=== PATIENT | male | born 1990 | race Two or more races ===

== ENCOUNTER 2018-06-01 13:43 | Emergency (ER) | payer OTHER ==
[~2018-06-01] VITALS: Ht 180.3 cm; Wt 72.6 kg
[2018-06-01 14:05] VITALS: BP 115/72
[2018-06-01] MEDS ORDERED: NKM (14:07)
[2018-06-01] MEDS ORDERED: Tetanus/Diptheria/Pertussis Vaccine 0.5ml Syr IM ONE (14:30)
--- NOTE | 2018-06-01 14:45 | Emergency Room Report ---
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 pt. reports he was cutting a piece of plastic off of a box with a knife and stabbed his hand. Pt. reports 10/ in severity dull ache at the site of injury that is non radiating. Pt. is right hand dominant. He is not sure when his last tetanus vaccination was. not taking blood thinning medications. denies paresthesias to extremities distal to the injury . Denies loss or weakness in gross motor movements. Allergies: Coded Allergies: No Known Allergies (Unverified , 06/01/18) Patient History Past Medical History: see triage record Past Surgical History: none Pertinent Family History: none Reviewed Nursing Documentation: PMH: Agreed; PSxH: Agreed Nursing Documentation-PMH Past Medical History: No Stated History Review of Systems All Other Systems: negative except mentioned in HPI Physical Exam Vital Signs Date Time Temp Pulse Resp B/P (MAP) Pulse Ox O2 Delivery O2 Flow Rate FiO2 06/01/18 14:05 98.9 75 14 115/72 97 Room Air 99.0 Sp02 EP Interpretation: reviewed, normal General Appearance: no apparent distress, alert, GCS 15, non-toxic Head: normocephalic, atraumatic Eyes: bilateral eye normal inspection, bilateral eye PERRL ENT: hearing grossly normal, normal voice Neck: full range of motion Respiratory: chest non-tender, lungs clear, normal breath sounds, speaking full sentences Cardiovascular #1: regular rate, rhythm, no edema Gastrointestinal: normal bowel sounds, non tender, soft Rectal: deferred Genitourinary: normal inspection Musculoskeletal: back normal, gait/station normal, normal range of motion - able to flex index finger against resistance and no weakness noted. , non-tender , other - NVI to fingers distal to laceration. Neurologic: alert, oriented x3, responsive, motor strength/tone normal, sensory intact, speech normal, grossly normal Psychiatric: judgement/insight normal Skin: normal color, no rash, warm/dry, well hydrated Lymphatic: no adenopathy Procedures Laceration/Wound Repair Laceration/Wound Repair : Consent: Verbal Wound Location: upper extremity - left hand Wound's Depth, Shape: flap Wound Length (cm): 1 Wound Explored: clean Irrigated w/ Saline (ccs): 500 Anesthesia: 1% Lidocaine Volume Anesthetic (ccs): 3 Wound Repaired With: sutures Suture Size/Type: 5:0 Number of Sutures: 3 Layer Closure?: No Sterile Dressing Applied?: Yes Splint Applied?: No Sling Applied?: No Patient Tolerated: Well Complications: None Medical Decision Making PA Attestation Dr. Cohen is my supervising Physician whom patient management has been discussed with. 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 Pt. reports 10/10 in severity dull ache at the site of injury that is non radiating. Pt. is right hand dominant. He is not sure when his last tetanus vaccination was. not taking blood thinning medications. denies paresthesias to extremities distal to the injury . Denies loss or weakness in gross motor movements. Ddx considered but are not limited to laceration, tendon injury, cellulitis, amputation Vital signs: are WNL, pt. is afebrile H&PE are most consistent with: flap laceration to the thenar webbing of the left hand approx 1 cm in length ORDERS: none required at this time, the diagnosis is clinical ED INTERVENTIONS: -Tetanus vaccine was administered as pt. vaccination status was unknown. -Tylenol PO - The wound was copiously irrigated with normal saline, and explored for foreign body for which no FB was found. - The wound was approximated and closed using 3 interrupted 5.0 Ethilon sutures. -Bacitracin and sterile dressing is applied. Discussed with patient: That we make every effort to approximate the laceration as best as we can so that scarring will be as cosmetically pleasing as possible with our limited cosmetic skill set in the Emergency dept. Regardless of our best efforts there will be scarring after laceration repair. The extent of scarring is unknown at this time. DISCHARGE: At this time pt. is stable for d/c to home. Will provide printed patient care instructions, and any necessary prescriptions. Care plan and follow up instructions have been discussed with the patient prior to discharge. Last Vital Signs Date Time Temp Pulse Resp B/P (MAP) Pulse Ox O2 Delivery O2 Flow Rate FiO2 06/01/18 14:05 14 115/72 97 Room Air 06/01/18 14:05 98.9 75 99.0 Disposition: HOME, SELF-CARE Condition: Stable Scripts Acetaminophen* (TYLENOL EXTRA STRENGTH*) 500 Mg Tablet 500 MG ORAL Q6H, #20 TAB 0 Refills Prov: Angelique Sandy 06/01/18 Cephalexin* (KEFLEX*) 500 Mg Capsule 500 MG ORAL EVERY 12 HOURS for 7 Days, #14 CAP 0 Refills Prov: Angelique Sandy 06/01/18 Bacitracin/Polymyxin B Sulfate (BACITRACIN-POLYMYXIN OINTMENT) 28.35 Gm Oint...g. 1 APPLIC TP BID, #22 GM Prov: Angelique Sandy 06/01/18 Patient Instructions: Laceration Care, Adult Additional Instructions: Take medications as directed. Sutures to be removed in 10 days Follow up with a Primary Care Provider in 3-5 days, even if your symptoms have resolved. --Please review list of primary care clinics, if you do not already have a primary care provider Return sooner to ED if new symptoms occur, or current symptoms become worse. - Please note that this Emergency Department Report was dictated using [employer] director technology software, occasionally this can lead to erroneous entry secondary to interpretation by the dictation equipment. Angelique Sandy Jun 01, 2018 14:45
[2018-06-01] MEDS ORDERED: Lidocaine 1% MPF 10mg/ml 5ml IM ONE (15:00)
[2018-06-01] MEDS ORDERED: Bacitracin Oint UD TOPIC ONE (15:27)
[2018-06-01 15:45] VITALS: BP 112/76
[2018-06-01] MEDS ORDERED: CEPHALEXIN500 MG ORAL (15:49)
[2018-06-01] MEDS ORDERED: BACITRACIN-P28.35 GM TP (15:49)
[2018-06-01] MEDS ORDERED: TYLENOL EXTRA500 MG ORAL (15:53)
[2018-06-01 16:00] VITALS: BP 112/76
== END 2018-06-01 16:30 | disposition home or self-care (01) ==
LOC: EMR 16:29
DX: S61.412A Laceration without foreign body of left hand, initial encounter (principal); W26.0XXA Contact with knife, initial encounter; Y92.9 Unspecified place or not applicable; Z23 Encounter for immunization
CPT/HCPCS: 90471; 90715; 99283

== ENCOUNTER 2018-06-04 11:35 | Emergency (ER) | payer OTHER ==
[~2018-06-04] VITALS: Ht 180.3 cm; Wt 79.8 kg
[~2018-06-04 11:35] MED LIST: BACITRACIN-P28.35 GM TP; CEPHALEXIN500 MG ORAL; NKM; TYLENOL EXTRA500 MG ORAL
[2018-06-04] MEDS ORDERED: Hydrogen Peroxide 473ml Bottle TOPIC ONE ×2 (11:51→12:00)
[2018-06-04] MEDS ORDERED: Bacitracin Oint UD TOPIC ONE ×2 (11:52→12:00)
[2018-06-04 11:53] VITALS: BP 115/79
[2018-06-04 12:02] VITALS: BP 115/79
--- NOTE | 2018-06-04 13:36 | Emergency Room Report ---
History of Present Illness General Chief Complaint: Wound Recheck/Suture Removal Source: Patient, Medical Record Present Illness HPI Patient presented for wound check. The patient recent suture placed. The patient denied any fever. He reported having some tightness to his thumb. He denied any wound discharge. Allergies: Coded Allergies: No Known Allergies (Unverified , 06/01/18) Patient History Reviewed Nursing Documentation: PMH: Agreed; PSxH: Agreed Nursing Documentation-PMH Past Medical History: No Stated History Review of Systems All Other Systems: negative except mentioned in HPI Physical Exam Vital Signs Date Time Temp Pulse Resp B/P (MAP) Pulse Ox O2 Delivery O2 Flow Rate FiO2 06/04/18 11:42 98.0 66 18 115/79 96 Room Air 98.1 General Appearance: well appearing, no apparent distress, alert, GCS 15 Head: normocephalic, atraumatic ENT: hearing grossly normal, normal voice Neck: full range of motion, supple Respiratory: no respiratory distress, speaking full sentences Musculoskeletal: no calf tenderness Neurologic: normal inspection, alert, oriented x3, normal gait Psychiatric: mood/affect normal Skin: other - healing wound no evident infection Medical Decision Making Diagnostic Impression: Primary Impression: Encounter for wound re-check ER Course Patient presented for wound check. Differential diagnosis included was not limited to infected wound, nonhealed wound, neuroma, healed wound. The patient' s wound appears noninfected. The wound was cleansed and dressed with antibiotic ointment. Patient was advised suture removal in 7-10 days Last Vital Signs Date Time Temp Pulse Resp B/P (MAP) Pulse Ox O2 Delivery O2 Flow Rate FiO2 06/04/18 12:02 98.1 98 18 115/79 96 Room Air 98.1 Status: improved Disposition: HOME, SELF-CARE Condition: Stable Referrals: NOT CHOSEN IPA/,REFERRING (PCP) Patient Instructions: Wound Check Additional Instructions: Change dressing daily, suture removal in one week. Adalberto Cohen MD Jun 04, 2018 13:36
== END 2018-06-04 12:05 | disposition home or self-care (01) ==
LOC: EMR 11:55
DX: Z48.01 Encounter for change or removal of surgical wound dressing (principal)
CPT/HCPCS: 99283

== ENCOUNTER 2018-06-12 09:54 | Emergency (ER) | payer OTHER ==
[~2018-06-12] VITALS: Ht 180.3 cm; Wt 79.8 kg
[2018-06-12 10:02] VITALS: BP 120/76
--- NOTE | 2018-06-12 10:35 | Emergency Room Report ---
History of Present Illness General Chief Complaint: Wound Recheck/Suture Removal Source: Patient Present Illness HPI This patient states that he lacerated his left hand week and half ago. 3 sutures were placed here at this emergency department. He presents for suture removal and wound check. He has no other complaints. Allergies: Coded Allergies: No Known Allergies (Unverified , 06/01/18) Patient History Past Medical History: none Past Surgical History: none Social History: Denies: smoking, alcohol use, drug use Reviewed Nursing Documentation: PMH: Agreed; PSxH: Agreed Nursing Documentation-PMH Past Medical History: No Stated History Review of Systems All Other Systems: negative except mentioned in HPI Physical Exam Vital Signs Date Time Temp Pulse Resp B/P (MAP) Pulse Ox O2 Delivery O2 Flow Rate FiO2 06/12/18 09:57 98.9 60 20 120/76 98 Room Air 99.0 Sp02 EP Interpretation: reviewed, normal General Appearance: no apparent distress, alert, GCS 15, non-toxic Head: normocephalic, atraumatic Eyes: bilateral eye normal inspection ENT: hearing grossly normal, normal pharynx, no angioedema, normal voice Neck: normal inspection Respiratory: no respiratory distress, no retraction, no accessory muscle use, speaking full sentences Rectal: deferred Musculoskeletal: normal inspection, gait/station normal, normal range of motion Neurologic: alert, oriented x3, responsive, motor strength/tone normal, sensory intact, speech normal Psychiatric: judgement/insight normal, memory normal, mood/affect normal, no suicidal/homicidal ideation Skin: normal color, no rash, warm/dry, well hydrated, other - Healing laceration L. Thenar eminence with [address] No erythema or warmth. Procedures Splinting Splinting : Consent: Verbal Location: L. hand/wrist Pre-Made Type: velcro Splint: thumb spica Pre-Proc Neuro Vasc Exam: normal Post-Proc Neuro Vasc Exam: normal Patient Tolerated: Well Complications: None Medical Decision Making Diagnostic Impression: Primary Impression: Encounter for removal of sutures Additional Impression: Encounter for wound re-check ER Course This patient presents for wound check and removal of the sutures in his left hand. The wound appears to be healing well without infection and the sutures were removed without complication or incident. The patient desires to start going to the gym and using his hand. I will give the patient a Velcro thumb spica splint given the location of the wound as this will provide protection. The patient is given return precautions and follow-up instructions. Last Vital Signs Date Time Temp Pulse Resp B/P (MAP) Pulse Ox O2 Delivery O2 Flow Rate FiO2 06/12/18 10:02 99.0 60 20 120/76 98 Room Air 99.0 Status: improved Disposition: HOME, SELF-CARE Condition: Improved Referrals: NOT CHOSEN IPA/,REFERRING (PCP) Merry Mendoza DO Jun 12, 2018 10:35
[2018-06-12] MEDS ORDERED: Hydrogen Peroxide 473ml Bottle TOPIC ONE (10:36)
[2018-06-12 10:42] VITALS: BP 120/76
== END 2018-06-12 10:42 | disposition home or self-care (01) ==
LOC: EMR 10:11
DX: S61.412D Laceration without foreign body of left hand, subsequent encounter (principal); X58.XXXD Exposure to other specified factors, subsequent encounter; Z48.02 Encounter for removal of sutures
CPT/HCPCS: 99282